=== PATIENT | male | born 1995 | race Caucasian/White ===

== ENCOUNTER 2017-09-25 06:42 | Emergency (ER) | payer MEDICAID | END 2017-09-25 08:12 | disposition home or self-care (01) | LOC: D.ER 06:42 | DX: S61.032A Puncture wound without foreign body of left thumb without damage to nail, initial encounter (principal); W26.9XXA Contact with unspecified sharp object(s), initial encounter; Y93.89 Activity, other specified; Y92.029 Unspecified place in mobile home as the place of occurrence of the external cause ==

== ENCOUNTER 2018-01-07 09:51 | Inpatient (IN) | payer MEDICAID ==
--- NOTE | ~2018-01-07 | CN ---
PATIENT NAME:HARSHAD GOMEZ MEDICAL RECORD: [id number] : 89 LOCATION:[facility]- ADMIT DATE: 01/07/18 ACCOUNT: [id number] CONSULTING PHYSICIAN: ANAT GROVER MD REFERRING PHYSICIAN: TIKI MYRICK MD DATE OF CONSULTATION: 01/08/2018 IDENTIFYING DATA: The patient is 22 years old and he is admitted to the hospital secondary to an overdose. CHIEF COMPLAINT: "I just did something stupid." HISTORY OF PRESENT ILLNESS: The patient took 36 Tylenol tablets. He says at that time, he was taking them he felt like life was not worth living, but as soon as he took them he immediately regretted doing so, told his family what he had done and sought medical treatment. He does have a psychiatric history, but he does not have a history of hurting himself or trying to hurt himself. He is not wanting to go inpatient. 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 He strongly affirms that he will go to outpatient mental health treatment. MENTAL STATUS EXAMINATION: The patient is alert and oriented to person, place, time and situation. His mood is flat. His affect is constricted. Thought processes are circumstantial. Memory, concentration, and abstraction abilities are intact. He denies any intent to harm himself or others as well as overt psychotic symptoms. ASSESSMENT: 1. Major depression. 2. Status post overdose. PLAN: The patient will be discharged from the hospital once medically stable. He is to have follow up was [facility] for mental health issues. The patient was offered inpatient treatment, but declined. I probably could have made an argument for an involuntary commitment, but weighing the situation, to fax, the relative pros and cons and of course all of these are only related to what is in his best long-term interest in a 49-51 decision I have decided to let him go home. I believe he really wants some help with his depression and will go to outpatient treatment. He seems genuinely and sincerely remorseful and frightened of hospitals and going to a facility. He is young, he is relatively naive in many ways, and I do not think I would be accomplishing anything by forcing him to go for 3 days of observation on the behavioral unit. TRANSINT:[id number] Voice Confirmation ID: [id number] DOCUMENT ID: [id number] ANAT GROVER MD at 2009 CC: [id number] DICTATION DATE: 01/08/18 1518 UPPER STITCHER: 01/08/18 1538 DIS IN 01/08/18 [id number] [place] [address]
[2018-01-07 10:16] LABS: BASOPHILS 0.1 % (0-2); EOSINOPHILS 1.6 % (0-7); HEMATOCRIT 45.1 % (42.0-54.0); HEMOGLOBIN 15.8 g/dL (13.5-17.5); IMMATURE GRANULOCYTES 0.2 % (0-5); LYMPHOCYTES 23.7 % (15-50); MCH 30.4 pg (26.0-34.0); MCV 86.7 fL (80.0-100.0); MEAN PLATELET VOLUME 10.8 fL (7.4-10.4); MONOCYTES 9.3 % (2-11); NEUTROPHILS 65.1 % (40-80); PLATELET COUNT 214 10x3/uL (130-400); RDW 12.2 % (11.5-14.5); WBC 10.2 10x3/uL (4.8-10.8)
[2018-01-07 10:33] LABS: ALBUMIN 4.4 g/dL (3.4-5.0); ALKALINE PHOSPHATASE 58 U/L (46-116); ALT (SGPT) 33 U/L (10-68); CALC OSMOLALITY 273 mosm/kg (275-300); CALCIUM 9.2 mg/dL (8.5-10.1); CARBON DIOXIDE 25.7 mmol/L (21.0-32.0); CHLORIDE - SERUM 102 mmol/L (98-107); CREATININE - SERUM 1.1 mg/dL (0.6-1.3); GLUCOSE 126 mg/dL (74-106); POTASSIUM - SERUM 3.8 mmol/L (3.5-5.1); PROTEIN - SERUM 7.1 g/dL (6.4-8.2); SODIUM 136 mmol/L (136-145); UREA NITROGEN 12 mg/dL (7-18); eGFR NON AFRICAN AMERICAN 87 mL/min (90-120)
[2018-01-07 10:39] LABS: LIPASE 270 U/L (73-393)
[2018-01-07 10:41] LABS: ACETAMINOPHEN 120.3 ug/mL (10.0-30.0)
[2018-01-07 11:38] LABS: UDS - AMPHET NEGATIVE QUAL (NEGATIVE); UDS - BARB NEGATIVE QUAL (NEGATIVE); UDS - BENZO NEGATIVE QUAL (NEGATIVE); UDS - COCAINE NEGATIVE QUAL (NEGATIVE); UDS - OPIATE NEGATIVE QUAL (NEGATIVE); UDS - PCP NEGATIVE QUAL (NEGATIVE); UDS - THC POSITIVE QUAL (NEGATIVE)
[2018-01-07 17:04] VITALS: BP 124/65
[2018-01-08 06:21] LABS: ACETAMINOPHEN 2.9 ug/mL (10.0-30.0); ALBUMIN 4.2 g/dL (3.4-5.0); ALKALINE PHOSPHATASE 62 U/L (46-116); ALT (SGPT) 29 U/L (10-68); CALC OSMOLALITY 276 mosm/kg (275-300); CALCIUM 9.1 mg/dL (8.5-10.1); CHLORIDE - SERUM 105 mmol/L (98-107); CREATININE - SERUM 0.9 mg/dL (0.6-1.3); GLUCOSE 85 mg/dL (74-106); SODIUM 139 mmol/L (136-145); UREA NITROGEN 12 mg/dL (7-18); eGFR NON AFRICAN AMERICAN > 90 mL/min (90-120)
== END 2018-01-08 16:21 | disposition home or self-care (01) | DRG 918 ==
LOC: D.ER 09:51 → D.EDHOLD 13:04
PROVIDERS: Family Medicine
DX: T39.1X2A Poisoning by 4-Aminophenol derivatives, intentional self-harm, initial encounter (principal); R45.851 Suicidal ideations; F32.9 Major depressive disorder, single episode, unspecified; F12.90 Cannabis use, unspecified, uncomplicated